=== PATIENT | female | born 1990 | race American Indian/Alaskan Native ===

== ENCOUNTER 2016-08-13 18:42 | Emergency (ER) | payer SELFPAY ==
--- NOTE | 2016-08-13 19:38 | Event Note ---
Date: 08/13/16 The patient is refusing medical care and intervention at this time. The patient is going to sign out AGAINST MEDICAL ADVICE. The patient is alert and oriented 3, exhibits decision-making capacity, it is free from distracting injury. The patient understands that she can return to the ER right away if it when she changes her mind. The risks of leaving, including , disability, paralysis, permanent loss of quality of life were discussed with the patient. She verbalized understanding to this, and was able to articulate all the aforementioned risks in her own words. Furthermore, this conversation was witnessed by nurse Jv Mas
== END 2016-08-14 02:00 | disposition left against medical advice (07) ==
LOC: ED 18:42
DX: R56.9 Unspecified convulsions (principal); Z88.0 Allergy status to penicillin; Z53.21 Procedure and treatment not carried out due to patient leaving prior to being seen by health care provider

== ENCOUNTER 2016-09-02 14:30 | Emergency (ER) | payer SELFPAY ==
[2016-09-02 15:08] LABS: Basophils % (Auto) 0.6 % (0.0-1.8); Eosinophils % (Auto) 1.6 % (0.0-4.3); Hematocrit 43.3 % (30.3-42.9); Hemoglobin 14.2 gm/dl (10.1-14.3); Mean Corpuscular HGB Conc 33 % (30-34); Mean Corpuscular Hemoglobin 29 pg (28-32); Mean Corpuscular Volume 87 fl (79-97); Platelet Count 196 K/mm3 (140-440); Red Blood Count 4.96 M/mm3 (3.65-5.03); Red Cell Distribution Width 15.3 % (13.2-15.2); White Blood Count 4.5 K/mm3 (4.5-11.0)
[2016-09-02 15:26] LABS: BUN/Creatinine Ratio 11.42; Blood Urea Nitrogen 8 mg/dL (7-17); Calcium 9.2 mg/dL (8.4-10.2); Carbon Dioxide 23 mmol/L (22-30); Glucose 86 mg/dL (65-100)
[2016-09-02 15:27] LABS: Anion Gap 18 mmol/L; Chloride 101.8 mmol/L (98-107); Potassium 3.8 mmol/L (3.6-5.0); Sodium 139 mmol/L (137-145)
--- NOTE | 2016-09-02 16:41 | Emergency Department Report ---
ED Seizure HPI - General Chief Complaint: Seizure Stated Complaint: SEIZURE Time Seen by Provider: 09/02/16 16:15 Source: EMS Mode of arrival: Stretcher Limitations: No Limitations - History of Present Illness Initial Comments: Patient is a 26-year-old female with history of pseudoseizures presenting today because of seizure-like episode. Patient states that she is currently on gabapentin 3 times a day and has been taking it as prescribed. She was supposed to have a EEG yesterday by her neurologist but missed it because she had no right To her appointment. Today she states that she was waiting in line for a couple hours and had her typical onset of seizure-like symptoms and EMS arrived finding that she was having tonic-clonic movement of her extremities. Patient was awake alert and able to converse A. She received Ativan 2 mg and has since improved. She denies any recent sickness or trauma, no fevers, chills , cough, dysuria, numbness, weakness, difficulty ambulating or speaking. Sees Dr. Bonilla from Neurology. - Related Data Home Medications Medication Instructions Recorded Confirmed Last Taken Gabapentin [Neurontin] 400 mg PO BID 09/02/16 09/02/16 09/02/16 09:20 Gabapentin [Neurontin] 600 mg PO HS 09/02/16 09/02/16 09/01/16 Allergies Allergy/AdvReac Type Severity Reaction Status Date / Time Penicillins Allergy Swelling Verified 02/18/13 14:13 ED Review of Systems ROS: Stated complaint: SEIZURE Other details as noted in HPI Comment: All other systems reviewed and negative Constitutional: denies: chills, fever Respiratory: denies: cough Cardiovascular: denies: chest pain Gastrointestinal: denies: abdominal pain, nausea, vomiting Skin: denies: rash Neurological: denies: headache, weakness, numbness, paresthesias, confusion Psychiatric: denies: anxiety ED Past Medical Hx - Past Medical History Previous Medical History?: Yes Hx Headaches / Migraines: Yes Hx Seizures: Yes (EPILEPSY, pseudoseizures) Additional medical history: tendonitis in both wrists, migraine headaches - Surgical History Additional Surgical History: tonsillectomy - Social History Smoking Status: Never Smoker Substance Use Type: Marijuana - Medications Home Medications: Home Medications Medication Instructions Recorded Confirmed Last Taken Type Gabapentin [Neurontin] 400 mg PO BID 09/02/16 09/02/16 09/02/16 09:20 History Gabapentin [Neurontin] 600 mg PO HS 09/02/16 09/02/16 09/01/16 History ED Physical Exam - General Limitations: No Limitations General appearance: alert - Head Head exam: Present: atraumatic - Eye Eye exam: Present: normal appearance - ENT ENT exam: Present: normal exam - Respiratory Respiratory exam: Present: normal lung sounds bilaterally. Absent: respiratory distress - Cardiovascular Cardiovascular Exam: Present: regular rate, normal rhythm - GI/Abdominal GI/Abdominal exam: Present: soft. Absent: distended, tenderness - Extremities Exam Extremities exam: Present: normal inspection - Neurological Exam Neurological exam: Present: alert, oriented X3, CN II-XII intact. Absent: motor sensory deficit - Psychiatric Psychiatric exam: Present: normal affect - Skin Skin exam: Present: intact ED Course Vital Signs 09/02/16 14:31 Temperature 98 F Pulse Rate 67 Respiratory 16 Rate Blood Pressure 102/83 O2 Sat by Pulse 100 Oximetry ED Medical Decision Making - Lab Data Result diagrams: 09/02/16 14:55 09/02/16 14:55 - Medical Decision Making Labs had been preordered, labs show normal electrolytes and urine is negative, unremarkable results Patient is alert and oriented 4 and has no neurological deficits, This is likely due to a pseudoseizure which she has a history of. Patient is clinically stable for discharge. Critical care attestation.: If time is entered above; I have spent that time in minutes in the direct care of this critically ill patient, excluding procedure time. ED Disposition Clinical Impression: Pseudoseizure Disposition: DC-01 TO HOME OR SELFCARE Is pt being admited?: No Does the pt Need Aspirin: No Condition: Stable Instructions: Non-epileptic Seizures (ED) Additional Instructions: Please follow up with your primary care doctor as well as your neurologist Dr. Bonilla in the next 3-5 days. Return to the emergency room if your symptoms acutely worsen or develop new symptoms. Referrals: PRIMARY CARE,MD [Primary Care Provider] - 3-5 Days
[2016-09-02 17:44] VITALS: BP 126/76
== END 2016-09-02 17:44 | disposition home or self-care (01) ==
LOC: ED 14:30
DX: R56.9 Unspecified convulsions (principal); G43.909 Migraine, unspecified, not intractable, without status migrainosus; F12.90 Cannabis use, unspecified, uncomplicated; Z79.01 Long term (current) use of anticoagulants; Z88.0 Allergy status to penicillin
CPT/HCPCS: 36415; 80048; 82962; 84703; 85025; 99284

== ENCOUNTER 2016-11-12 08:53 | Emergency (ER) | payer SELFPAY ==
[2016-11-12] MEDS ORDERED: ATIVAN IV ONE (10:35)
--- NOTE | 2016-11-12 10:39 | Emergency Department Report ---
ED Seizure HPI - General Chief Complaint: Seizure Stated Complaint: SEIZURE Time Seen by Provider: 11/12/16 10:26 Source: patient, EMS Mode of arrival: Stretcher Limitations: Physical Limitation - History of Present Illness Initial Comments: Patient is a 26 years old female history of seizure followed by EMS after one episode of tonic-clonic seizure. 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 No bowel or bladder incontinence. no injury. MD Complaint: seizure -: Sudden Description of Episode: loss of consciousness, tonic-clonic movement Seizure History: known seizure disorder Place: street/outdoors Possible Precipitating Event: none Associated Symptoms: denies other symptoms Treatments Prior to Arrival: none - Related Data Home Medications Medication Instructions Recorded Confirmed Last Taken Gabapentin [Neurontin] 400 mg PO BID 09/02/16 09/02/16 09/02/16 09:20 Gabapentin [Neurontin] 600 mg PO HS 09/02/16 09/02/16 09/01/16 Allergies Allergy/AdvReac Type Severity Reaction Status Date / Time Penicillins Allergy Swelling Verified 02/18/13 14:13 ED Review of Systems ROS: Stated complaint: SEIZURE Other details as noted in HPI Comment: All other systems reviewed and negative Constitutional: denies: chills, fever ENT: denies: ear pain, throat pain Respiratory: denies: cough, orthopnea, shortness of breath, SOB with exertion Cardiovascular: denies: chest pain, palpitations Gastrointestinal: denies: abdominal pain, nausea, vomiting, diarrhea Genitourinary: denies: urgency, dysuria, frequency Skin: denies: rash Neurological: denies: headache, weakness, numbness, paresthesias ED Past Medical Hx - Past Medical History Previous Medical History?: Yes Hx Headaches / Migraines: Yes Hx Seizures: Yes (EPILEPSY, pseudoseizures) Additional medical history: tendonitis in both wrists, migraine headaches - Surgical History Past Surgical History?: Yes Additional Surgical History: tonsillectomy - Social History Smoking Status: Current Every Day Smoker Substance Use Type: Alcohol, Marijuana, Prescribed - Medications Home Medications: Home Medications Medication Instructions Recorded Confirmed Last Taken Type Gabapentin [Neurontin] 400 mg PO BID 09/02/16 09/02/16 09/02/16 09:20 History Gabapentin [Neurontin] 600 mg PO HS 09/02/16 09/02/16 09/01/16 History ED Physical Exam - General Limitations: Physical Limitation General appearance: alert, in no apparent distress - Head Head exam: Present: normocephalic - Eye Eye exam: Present: normal appearance, PERRL Pupils: Present: normal accommodation - ENT ENT exam: Present: normal exam, normal orophraynx, mucous membranes moist - Neck Neck exam: Present: normal inspection, full ROM. Absent: tenderness - Respiratory Respiratory exam: Present: normal lung sounds bilaterally. Absent: respiratory distress, wheezes, rales, rhonchi, stridor, chest wall tenderness, accessory muscle use, decreased breath sounds, prolonged expiratory - Cardiovascular Cardiovascular Exam: Present: bradycardia, normal heart sounds - GI/Abdominal GI/Abdominal exam: Present: soft, normal bowel sounds. Absent: distended, tenderness, guarding, rebound, rigid, mass, bruit, pulsatile mass - Extremities Exam Extremities exam: Present: normal inspection, full ROM, normal capillary refill - Back Exam Back exam: Present: normal inspection. Absent: tenderness, CVA tenderness (R), CVA tenderness (L) - Neurological Exam Neurological exam: Present: alert, oriented X3, CN II-XII intact, normal gait, reflexes normal. Absent: abnormal gait, motor sensory deficit - Psychiatric Psychiatric exam: Present: normal affect, normal mood. Absent: depressed, agitated, manic, homicidal ideation, suicidal ideation - Skin Skin exam: Present: warm, intact, normal color ED Course Vital Signs 11/12/16 09:06 Temperature 98.3 F Pulse Rate 48 L Respiratory 18 Rate Blood Pressure 145/92 O2 Sat by Pulse 98 Oximetry - Reevaluation(s) Reevaluation #1: 11/12/16 13:21 No seizures reported in the ER. Patient is a work alert oriented 3 and in no acute distress. ED Medical Decision Making - Lab Data Result diagrams: 11/12/16 10:44 11/12/16 10:44 - Medical Decision Making Patient stated that she swelling is Dr. Adolfo Shepherd neurologist she is on gabapentin she stated that she is taking her medication , she has an appointment with him soon. Patient advised not to drive. Critical care attestation.: If time is entered above; I have spent that time in minutes in the direct care of this critically ill patient, excluding procedure time. ED Disposition Clinical Impression: Seizure-like activity Disposition: DC-01 TO HOME OR SELFCARE Is pt being admited?: No Condition: Stable Instructions: Epilepsy (ED) Referrals: PRIMARY CARE, [Primary Care Provider] - 3-5 Days
[2016-11-12 11:13] LABS: Alanine Aminotransferase 8 units/L (7-56); Albumin/Globulin Ratio 1.5 %; Alkaline Phosphatase 43 units/L (35-129); Anion Gap 14 mmol/L; BUN/Creatinine Ratio 10; Blood Urea Nitrogen 8 mg/dL (7-17); Calcium 9.1 mg/dL (8.4-10.2); Carbon Dioxide 26 mmol/L (22-30); Chloride 104.4 mmol/L (98-107); Glucose 89 mg/dL (65-100); Potassium 3.8 mmol/L (3.6-5.0); Sodium 141 mmol/L (137-145); Total Protein 6.7 g/dL (6.3-8.2)
[2016-11-12 11:20] LABS: Basophils % (Auto) 0.5 % (0.0-1.8); Eosinophils % (Auto) 3.1 % (0.0-4.3); Hematocrit 42.2 % (30.3-42.9); Hemoglobin 13.5 gm/dl (10.1-14.3); Mean Corpuscular HGB Conc 32 % (30-34); Mean Corpuscular Hemoglobin 28 pg (28-32); Mean Corpuscular Volume 88 fl (79-97); Platelet Count 211 K/mm3 (140-440); Red Blood Count 4.82 M/mm3 (3.65-5.03); Red Cell Distribution Width 15.5 % (13.2-15.2)
[2016-11-12 12:56] LABS: Urine Drugs of Abuse Note Disclamer
[2016-11-12 13:28] LABS: Bacteria,Urine 1+ /HPF (Negative); Bilirubin,Urine NEG (Negative); Blood,Urine NEG (Negative); Ketones,Urine NEG (Negative); Leukocyte Esterase,Urine SM (Negative); Nitrite,Urine NEG (Negative); Protein,Urine <15 mg/dL mg/dL (Negative); Urobilinogen,Urine < 2.0 mg/dL (<2.0)
[2016-11-12 13:50] VITALS: BP 128/73
== END 2016-11-12 13:50 | disposition home or self-care (01) ==
LOC: ED 08:53
DX: R56.9 Unspecified convulsions (principal); G43.909 Migraine, unspecified, not intractable, without status migrainosus; F17.210 Nicotine dependence, cigarettes, uncomplicated; F12.10 Cannabis abuse, uncomplicated
CPT/HCPCS: 36415; 80053; 80307; 81001; 84703; 85025; 96374; 99284; J2060

== ENCOUNTER 2016-11-25 14:55 | Emergency (ER) | payer SELFPAY ==
[2016-11-25 15:38] VITALS: BP 110/74
--- NOTE | 2016-11-25 16:46 | Emergency Department Report ---
ED General Adult HPI - General Chief complaint: Seizure Stated complaint: SEIZURE Time Seen by Provider: 11/25/16 16:35 Source: patient, EMS (ems notes not available at time of chart dictation), RN notes reviewed, old records reviewed Mode of arrival: Stretcher Limitations: No Limitations - History of Present Illness Initial comments: This is a 26-year-old female, the patient is previously unknown to this provider , as per review of prior documentation, patient has a past medical history of pseudoseizures, patient is brought to the hospital by EMS today for seizure- like activity. The patient reports that she was in court today, and had a seizure. She had no headache, neck pain, chest pain, abdominal pain or shortness of breath. She reports that she gets these episodes of convulsions on a daily basis, and that "cool rags" typically alleviated her symptoms. She denies toxic drug ingestions, she denies irritative and obstructive urinary symptoms, she requested prescription of Ativan to help her out. -: Sudden Improves with: medication Associated Symptoms: denies other symptoms - Related Data Home Medications Medication Instructions Recorded Confirmed Last Taken Gabapentin [Neurontin] 600 mg PO TID 09/02/16 11/25/16 11/25/16 Allergies Allergy/AdvReac Type Severity Reaction Status Date / Time Penicillins Allergy Swelling Verified 02/18/13 14:13 ED Review of Systems ROS: Stated complaint: SEIZURE Other details as noted in HPI Constitutional: denies: fever Eyes: denies: eye discharge ENT: denies: epistaxis Respiratory: denies: cough Cardiovascular: denies: chest pain Gastrointestinal: denies: abdominal pain Genitourinary: denies: urgency, dysuria Musculoskeletal: denies: back pain Skin: denies: lesions Neurological: denies: weakness Psychiatric: denies: anxiety, homicidal thoughts, suicidal thoughts ED Past Medical Hx - Past Medical History Hx Headaches / Migraines: Yes Hx Seizures: Yes (EPILEPSY, pseudoseizures) Additional medical history: tendonitis in both wrists, migraine headaches - Surgical History Additional Surgical History: tonsillectomy - Social History Smoking Status: Never Smoker Substance Use Type: None - Medications Home Medications: Home Medications Medication Instructions Recorded Confirmed Last Taken Type Gabapentin [Neurontin] 600 mg PO TID 09/02/16 11/25/16 11/25/16 History ED Physical Exam - General Limitations: No Limitations General appearance: alert, in no apparent distress - Head Head exam: Present: atraumatic, normocephalic - Eye Eye exam: Present: normal appearance, EOMI, other (visual acuity intact to finger counting, color perception, reading at a close distance). Absent: nystagmus - ENT ENT exam: Present: normal exam, normal orophraynx, mucous membranes moist, normal external ear exam - Neck Neck exam: Present: normal inspection, full ROM. Absent: tenderness, meningismus - Respiratory Respiratory exam: Present: normal lung sounds bilaterally. Absent: respiratory distress, wheezes, rales, rhonchi, stridor, chest wall tenderness, accessory muscle use, decreased breath sounds, prolonged expiratory - Cardiovascular Cardiovascular Exam: Present: regular rate, normal rhythm, normal heart sounds. Absent: bradycardia, tachycardia, irregular rhythm, systolic murmur, diastolic murmur, rubs, gallop - GI/Abdominal GI/Abdominal exam: Present: soft, normal bowel sounds. Absent: distended, tenderness, guarding, rebound, rigid, pulsatile mass - Extremities Exam Extremities exam: Present: normal inspection, full ROM, normal capillary refill. Absent: pedal edema, joint swelling, calf tenderness - Back Exam Back exam: Present: normal inspection, full ROM. Absent: tenderness, CVA tenderness (R), CVA tenderness (L), muscle spasm, paraspinal tenderness, vertebral tenderness - Neurological Exam Neurological exam: Present: alert, oriented X3, normal gait, other (Extraocular movements intact. Tongue midline. No facial droop. Facial sensation intact to light touch in the V1, V2, V3 distribution bilaterally. 5 and 5 strength in 4 extremities.. Sensation is intact to light touch in 4 extremities.). Absent : motor sensory deficit - Psychiatric Psychiatric exam: Present: normal affect, normal mood. Absent: homicidal ideation, suicidal ideation - Skin Skin exam: Present: warm, dry, intact, normal color. Absent: rash ED Course Vital Signs 11/25/16 11/25/16 15:22 16:18 Temperature 98.6 F Pulse Rate 76 Respiratory 18 18 Rate Blood Pressure 110/74 O2 Sat by Pulse 100 100 Oximetry ED Medical Decision Making - Lab Data Vital Signs 11/25/16 11/25/16 15:22 16:18 Temperature 98.6 F Pulse Rate 76 Respiratory 18 18 Rate Blood Pressure 110/74 O2 Sat by Pulse 100 100 Oximetry Lab Results 11/25/16 Range/Units 16:44 Urine Color Yellow (Yellow) Urine Turbidity Clear (Clear) Urine pH 7.0 (5.0-7.0) Ur Specific [place] 1.019 (1.003-1.030) Urine Protein <15 mg/dl (Negative) mg/dL Urine Glucose (UA) Neg (Negative) mg/dL Urine Ketones Neg (Negative) mg/dL Urine Blood Neg (Negative) Urine Nitrite Neg (Negative) Ur Reducing Substances Not Reportable Urine Bilirubin Neg (Negative) Urine Ictotest Not Reportable Urine Urobilinogen < 2.0 (<2.0) mg/dL Ur Leukocyte Esterase Neg (Negative) Urine WBC (Auto) 3.0 (0.0-6.0) /HPF Urine RBC (Auto) 2.0 (0.0-6.0) /HPF U Epithel Cells (Auto) 3.0 (0-13.0) /HPF Urine Mucus 1+ /HPF Urine HCG, Qual Negative (Negative) - Medical Decision Making Differential diagnoses: Seizure, pseudoseizure, urinary tract infection, Assessment and plan: 26-year-old female, reported and documented history of pseudoseizures, who was in court today, reports feeling very anxious, and had one of her typical convulsive episodes. She has no complaints at this time, does not require 1013, walks with a steady gait, is clinically sober, has a GCS of 15, with an NIH score of 0. The patient should follow-up in outpatient neurologist. He will be discharged at this time, return precautions are reviewed, urinalysis not consistent with , or urinary tract infection. Critical care attestation.: If time is entered above; I have spent that time in minutes in the direct care of this critically ill patient, excluding procedure time. ED Disposition Clinical Impression: Seizure-like activity Disposition: DC-01 TO HOME OR SELFCARE Is pt being admited?: No Does the pt Need Aspirin: No Condition: Stable Instructions: Recurrent Seizures Adult (ED) Additional Instructions: Continue current outpatient medications. Do not drive a car or operate motor vehicles for the next 6 months. Follow up with the neurology specialist within the next 7-10 days. Return to the ER right away with recurrent seizure, chest pain, shortness of breath, loss of consciousness, fevers, chills, lethargy, irritability, projectile vomiting, change in mental status, inability to tolerate liquid feeds. Referrals: PRIMARY CARE, [Primary Care Provider] - 3-5 Days GUEVARA OLMEDO MD [Referring] - 3-5 Days PIERO RONDON MD [Staff Physician] - 3-5 Days KRYSTEN SANCHEZ MD [Staff Physician] - 3-5 Days NATE PETERSON MD [Staff Physician] - 3-5 Days
[2016-11-25 17:45] LABS: Bilirubin,Urine NEG (Negative); Blood,Urine NEG (Negative); Ketones,Urine NEG (Negative); Leukocyte Esterase,Urine NEG (Negative); Mucus,Urine 1+ /HPF; Nitrite,Urine NEG (Negative); Protein,Urine <15 mg/dL mg/dL (Negative); Urobilinogen,Urine < 2.0 mg/dL (<2.0)
== END 2016-11-25 18:12 | disposition home or self-care (01) ==
LOC: ED 14:55
DX: R56.9 Unspecified convulsions (principal); G43.909 Migraine, unspecified, not intractable, without status migrainosus; Z88.0 Allergy status to penicillin
CPT/HCPCS: 81001; 81025; 99284

== ENCOUNTER 2017-02-11 12:39 | Emergency (ER) | payer SELFPAY ==
[2017-02-11 13:52] VITALS: BP 107/68
[2017-02-11 14:48] LABS: Hematocrit 42.8 % (30.3-42.9); Hemoglobin 14.2 gm/dl (10.1-14.3); Mean Corpuscular HGB Conc 33 % (30-34); Mean Corpuscular Hemoglobin 29 pg (28-32); Mean Corpuscular Volume 87 fl (79-97); Platelet Count 210 K/mm3 (140-440); Red Blood Count 4.91 M/mm3 (3.65-5.03); Red Cell Distribution Width 16.3 % (13.2-15.2)
[2017-02-11 15:10] LABS: BUN/Creatinine Ratio 13; Blood Urea Nitrogen 8 mg/dL (7-17); Calcium 9.6 mg/dL (8.4-10.2); Hemolysis Index 12
== END 2017-02-11 23:30 | disposition left against medical advice (07) ==
LOC: ED 12:39
DX: R11.2 Nausea with vomiting, unspecified (principal); Z53.21 Procedure and treatment not carried out due to patient leaving prior to being seen by health care provider
CPT/HCPCS: 36415; 80048; 85027

== ENCOUNTER 2019-05-08 12:35 | Emergency (ER) | payer MEDICAID ==
[2019-05-08] MEDS ORDERED: ONDANSETRON 4 MG/2 ML INJ IV ONE (13:13)
--- NOTE | 2019-05-08 13:17 | Emergency Department Report ---
HPI - General Chief Complaint: Abdominal Pain Time Seen by Provider: 05/08/19 13:07 - HPI HPI: Room 4 The patient is a 29-year-old female present with a chief complaint of vomiting and seizures. The patient is currently postictal and very poor historian. Per EMS the patient had complained of abdominal pain nausea vomiting and seizures. The patient's mother witnessed the patient had multiple seizures whenever she complained of abdominal pain and vomiting. EMS administered Versed 5 mg IV. ED Past Medical Hx - Past Medical History Previous Medical History?: Yes Hx Headaches / Migraines: Yes Hx Seizures: Yes (EPILEPSY, pseudoseizures) Additional medical history: tendonitis in both wrists, migraine headaches - Surgical History Past Surgical History?: Yes Additional Surgical History: tonsillectomy - Family History Family history: no significant - Social History Smoking Status: Never Smoker Substance Use Type: Marijuana - Medications Home Medications: Home Medications Medication Instructions Recorded Confirmed Last Taken Type Gabapentin [Neurontin] 600 mg PO TID 09/02/16 11/25/16 11/25/16 History Promethazine [Phenergan] 25 mg PO Q6HR PRN #20 tab 05/08/19 Unknown Rx Promethazine [Phenergan] 25 mg IA Q6HR PRN #5 supp.rect 05/08/19 Unknown Rx levoFLOXacin [Levaquin TAB] 500 mg PO QDAY #7 tablet 05/08/19 Unknown Rx metroNIDAZOLE [Flagyl] 500 mg PO Q8HR #21 tablet 05/08/19 Unknown Rx ED Review of Systems ROS: Stated complaint: SEIZURES Other details as noted in HPI Constitutional: no symptoms reported Respiratory: no symptoms reported Endocrine: no symptoms reported Physical Exam - Physical Exam Vital Signs: Vital Signs 05/08/19 12:50 Temperature 98.2 F Pulse Rate 56 L Blood Pressure 141/78 Physical Exam: GENERAL: The patient is well-developed well-nourished female lying on stretcher appearing postictal but in no acute distress. Patient answers questions sometimes with and goes back to sleep HEENT: Normocephalic. Atraumatic. Extraocular motions are intact. Patient has moist mucous membranes. NECK: Supple. Trachea midline CHEST/LUNGS: Clear to auscultation. There is no respiratory distress noted. HEART/CARDIOVASCULAR: Regular. There is no tachycardia. There is no gallop rub or murmur. ABDOMEN: Abdomen is soft, nontender. Patient has normal bowel sounds. There is no abdominal distention. SKIN: There is no rash. There is no edema. There is no diaphoresis. NEURO: The patient is postictal and answers some questions. The patient is not fully cooperative with neurologic exam. The patient has normal speech MUSCULOSKELETAL: There is no evidence of acute injury. ED Course Vital Signs 05/08/19 12:50 Temperature 98.2 F Pulse Rate 56 L Blood Pressure 141/78 ED Medical Decision Making - Lab Data Result diagrams: 05/08/19 14:01 05/08/19 14:01 - Radiology Data Radiology results: report reviewed (CT head, CT abdomen pelvis), image reviewed (CT head, CT abdomen pelvis) Findings [facility] [address] [place] [address] Cat Scan Report Signed Patient: DOMINGA CORREA MR#: [id number] : 1990 Acct:[id number] Age/Sex: 29 / F ADM Date: 05/08/19 Loc: ED Attending Dr: Ordering Physician: NEO TATE MD Date of Service: 05/08/19 Procedure(s): CT abdomen pelvis w con Accession Number(s): [id number] cc: NEO TATE MD CT ABDOMEN AND PELVIS WITH CONTRAST HISTORY: Nausea vomiting COMPARISON: None. TECHNIQUE: Axial CT images were obtained through the abdomen and pelvis after 100 cc of Omnipaque 300 intravenously. Sagittal and coronal reformatted images. All CT scans at this location are perf ormed using CT dose reduction for ALARA by means of automated exposure control. FINDINGS: CT ABDOMEN: Lung Bases: Clear. Liver: No significant abnormality. Biliary: No significant abnormality. Spleen: No significant abnormality. Unenlarged. Pancreas: No significant abnormality. Adrenals: No significant abnormality. Kidneys: No significant abnormality. 1 cm right renal cyst is noted near mid pole. Lymphatics: No lymphadenopathy. Vasculature: No significant abnormality. Bowel/Peritoneum: There is suggestion of mild circumferential thickening of the transverse colon. A mild colitis could be considered. The remaining bowel loops including the appendix are unremarkable. No evidence for free fluid or free air. No mesenteric fat stranding. CT PELVIS: : A 3.2 cm rounded hypodensity consistent with a cyst is identified in the right adnexa. The uterus and left adnexa are unremarkable. The bladder is within normal limits. Osseous Structures: No significant abnormality. Additional Findings: None IMPRESSION: 3.2 cm right ovarian cyst. Question a mild colitis. Please correlate with the patient's clinical presentation. Signer Name: Fidel Dsouza Jr, MD Signed: 05/08/2019 4:01 PM Workstation Name: [id number] Transcribed By: TTR Dictated By: FIDEL DSOUZA JR, MD Electronically Authenticated By: FIDEL DSOUZA JR, MD Signed Date/Time: 05/08/19 160 DD/ 1557 TD/TT: Findings [facility] [address] [place] [address] Cat Scan Report Signed Patient: DOMINGA CORREA MR#: [id number] : 1990 Acct:[id number] Age/Sex: 29 / F ADM Date: 05/08/19 Loc: ED Attending Dr: Ordering Physician: NEO TATE MD Date of Service: 05/08/19 Procedure(s): CT head/brain wo con Accession Number(s): [id number] cc: NEO TATE MD CT head/brain wo con INDICATION / CLINICAL INFORMATION: 29 years Female; Seizure. TECHNIQUE: Routine CT head without contrast. All CT scans at this location are performed using CT dose reduction for ALARA by means of automated exposure control. COMPARISON: None. FINDINGS: BRAIN / INTRACRANIAL CONTENTS: The brain parenchyma appears to demonstrate appropriate attenuation. 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 The ventricular system otherwise appropriate in size and configuration. There is no clear CT evidence of acute intracranial hemorrhage or significant mass effect. ORBITS: No significant abnormality of visualized orbits. SINUSES / MASTOIDS: No significant abnormality the visualized paranasal sinuses or mastoid air cells. CRANIOCERVICAL JUNCTION: No significant abnormality. ADDITIONAL FINDINGS: None. IMPRESSION: 1. There is no CT evidence of acute intracranial process. Signer Name: Fer Villegas MD Signed: 05/08/2019 4:01 PM Workstation Name: [id number] Transcribed By: MR Dictated By: Fer Villegas MD Electronically Authenticated By: Fer Villegas MD Signed Date/Time: 05/08/19 160 DD/ 1557 TD/TT: - Differential Diagnosis Gastroenteritis, gastritis, seizures, pseudoseizures Critical care attestation.: If time is entered above; I have spent that time in minutes in the direct care of this critically ill patient, excluding procedure time. ED Disposition Clinical Impression: Colitis, Pseudoseizures Disposition: - TO HOME OR SELFCARE Is pt being admited?: No Does the pt Need Aspirin: No Condition: Stable Instructions: Abdominal Pain (ED) Additional Instructions: Return to the emergency department should you develop worsening symptoms, inability to tolerate food or liquids, high fever or any other concerns Prescriptions: metroNIDAZOLE [Flagyl] 500 mg PO Q8HR #21 tablet levoFLOXacin [Levaquin TAB] 500 mg PO QDAY #7 tablet Promethazine [Phenergan] 25 mg PO Q6HR PRN #20 tab PRN Reason: Nausea Promethazine [Phenergan] 25 mg IA Q6HR PRN #5 supp.rect PRN Reason: Vomiting 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
[2019-05-08 13:53] LABS: Amorphous Crystals,Urine Few; Bacteria,Urine 1+ /HPF (Negative); Bilirubin,Urine NEG (Negative); Blood,Urine SM (Negative); Color,Urine Yellow (Yellow); Mucus,Urine FEW /HPF; Protein,Urine <15 mg/dL mg/dL (Negative); Urobilinogen,Urine < 2.0 mg/dL (<2.0)
[2019-05-08 14:23] VITALS: BP 135/90
[2019-05-08 14:33] LABS: Hematocrit 42.6 % (30.3-42.9); Hemoglobin 13.7 gm/dl (10.1-14.3); Mean Corpuscular HGB Conc 32 % (30-34); Mean Corpuscular Volume 88 fl (79-97); Platelet Count 240 K/mm3 (140-440); Red Blood Count 4.84 M/mm3 (3.65-5.03); Red Cell Distribution Width 15.6 % (13.2-15.2)
[2019-05-08 14:55] LABS: Alanine Aminotransferase 12 units/L (7-56); Albumin 4.6 g/dL (3.9-5); BUN/Creatinine Ratio 13; Blood Urea Nitrogen 8 mg/dL (7-17); Calcium 9.2 mg/dL (8.4-10.2); Hemolysis Index 39
[2019-05-08 15:26] LABS: Basophils % (Manual) 0 % (0.0-1.8); Eosinophils % (Manual) 0 % (0.0-4.3); RBC Morphology Normal; Total Cells Counted 100
[2019-05-08] MEDS ORDERED: SODIUM CHLORIDE 0.9% 1000 ML 1,000 ML IV ONE (15:57)
--- NOTE | 2019-05-08 16:05 | Cat Scan Report ---
CT ABDOMEN AND PELVIS WITH CONTRAST HISTORY: Nausea vomiting COMPARISON: None. TECHNIQUE: Axial CT images were obtained through the abdomen and pelvis after 100 cc of Omnipaque 300 intravenously. Sagittal and coronal reformatted images. All CT scans at this location are performed using CT dose reduction for ALARA by means of automated exposure control. FINDINGS: CT ABDOMEN: Lung Bases: Clear. Liver: No significant abnormality. Biliary: No significant abnormality. Spleen: No significant abnormality. Unenlarged. Pancreas: No significant abnormality. Adrenals: No significant abnormality. Kidneys: No significant abnormality. 1 cm right renal cyst is noted near mid pole. Lymphatics: No lymphadenopathy. Vasculature: No significant abnormality. Bowel/Peritoneum: There is suggestion of mild circumferential thickening of the transverse colon. A m ild colitis could be considered. The remaining bowel loops including the appendix are unremarkable. N o evidence for free fluid or free air. No mesenteric fat stranding. CT PELVIS: : A 3.2 cm rounded hypodensity consistent with a cyst is identified in the right adnexa. The uterus and left adnexa are unremarkable. The bladder is within normal limits. Osseous Structures: No significant abnormality. Additional Findings: None IMPRESSION: 3.2 cm right ovarian cyst. Question a mild colitis. Please correlate with the patient's clinical presentation. Signer Name: Fidel Dsouza Jr, MD Signed: 05/08/2019 4:01 PM Workstation Name: [id number]
--- NOTE | 2019-05-08 16:06 | Cat Scan Report ---
CT head/brain wo con INDICATION / CLINICAL INFORMATION: 29 years Female; Seizure. TECHNIQUE: Routine CT head without contrast. All CT scans at this location are performed using CT dos e reduction for ALARA by means of automated exposure control. COMPARISON: None. FINDINGS: BRAIN / INTRACRANIAL CONTENTS: The brain parenchyma appears to demonstrate appropriate attenuation. T here is developmental cavum septum lucidum. The ventricular system otherwise appropriate in size and configuration. There is no clear CT evidence of acute intracranial hemorrhage or significant mass eff ect. ORBITS: No significant abnormality of visualized orbits. SINUSES / MASTOIDS: No significant abnormality the visualized paranasal sinuses or mastoid air cells. CRANIOCERVICAL JUNCTION: No significant abnormality. ADDITIONAL FINDINGS: None. IMPRESSION: 1. There is no CT evidence of acute intracranial process. Signer Name: Fer Villegas MD Signed: 05/08/2019 4:01 PM Workstation Name: [id number]
== END 2019-05-08 16:55 | disposition home or self-care (01) ==
LOC: ED 12:35
DX: K52.9 Noninfective gastroenteritis and colitis, unspecified (principal); R56.9 Unspecified convulsions; G43.909 Migraine, unspecified, not intractable, without status migrainosus; G40.909 Epilepsy, unspecified, not intractable, without status epilepticus; F12.10 Cannabis abuse, uncomplicated
CPT/HCPCS: 36415; 70450; 74177; 80053; 81001; 83690; 84703; 85007; 85025; 96361; 96374; 99284; J2405; J7030; Q9967